=== PATIENT | female | born 2005 | race Hispanic/Latino ===

== ENCOUNTER 2025-02-04 16:47 | Emergency (ER) | payer OTHER ==
[~2025-02-04] VITALS: Ht 177.8 cm; Wt 84.4 kg
[~2025-02-04 16:47] MED LIST: ACET500P24 PO; AUGMENTIN
[2025-02-04 17:19] LABS: IMMATURE GRANULOCYTE ABSOLUTE 0.02 K/uL (0-1); NUCLEATED RED BLOOD CELLS 0.0 % (0.0-0.19); PLATELET COUNT (AUTO) 190 K/uL (130-400); RED BLOOD CELL COUNT(AUTO) 3.84 MIL/uL (4.00-5.50); RED CELL DISTRIBUTION WIDTH 11.9 % (11.0-15.5); WHITE BLOOD COUNT (AUTO) 7.1 K/uL (4.8-10.8)
[2025-02-04 17:29] LABS: CREATININE 0.8 mg/dL (0.5-1.0); GLOMERULAR FILTR. RATE CALC 108.0 mL/min (>90); GLUCOSE,RANDOM 110.0 mg/dL (70-105); SODIUM SERUM 137.0 mmol/L (136-145); UREA NITROGEN, BLOOD 8.0 mg/dL (7-18)
[2025-02-04 17:44] LABS: APPEARANCE,URINE CLOUDY (CLEAR); GLUCOSE, URINE (UA) NEGATIVE (NEGATIVE); HCG,QUALITATIVE URINE NEGATIVE (NEGATIVE); LEUKOCYTE ESTERASE ,URINE 25 Leu/uL (NEGATIVE); NITRATE,URINE NEGATIVE (NEGATIVE); OCCULT BLOOD,URINE NEGATIVE (NEGATIVE)
[2025-02-04 17:51] LABS: ADD UA MICROSCOPIC YES
[2025-02-04 17:56] LABS: SQUAMOUS EPITHELIAL CELL,UR MANY /HPF (0-2)
[2025-02-04] MEDS ORDERED: IOHEXOL-350 75 ML VIAL IV ONE (18:08)
[2025-02-04] MEDS: 0.9%NACL 1000ML 1,000 ML IV ONE (18:37)
--- NOTE | 2025-02-04 19:13 | HMCIMG ---
EXAM: CT Abdomen and Pelvis with IV Contrast. CLINICAL HISTORY: Abdominal pain, RLQ abdominal pain. TECHNIQUE: Axial computed tomography images of the abdomen and pelvis with intravenous contrast. CONTRAST: Intravenous contrast administered. COMPARISON: None provided. FINDINGS: LUNG BASES: The lung bases appear clear. No pleural effusions. LIVER: Unremarkable. GALLBLADDER AND BILE DUCTS: The gallbladder appears within normal limits. No radiopaque gallstones. No biliary ductal dilatation. PANCREAS: Unremarkable. SPLEEN: Unremarkable. ADRENAL GLANDS: Unremarkable. KIDNEYS, URETERS, AND BLADDER: The kidneys appear within normal limits. No hydronephrosis or hydroureter. No urinary calculi. STOMACH AND BOWEL: Unremarkable appearance of the stomach and bowel. No evidence of bowel obstruction, enteritis, or colitis. APPENDIX: No evidence of acute appendicitis. PERITONEUM: No free fluid. No free air. LYMPH NODES: No lymphadenopathy. REPRODUCTIVE: A hypodense cyst in the right adnexa measuring 3.5 x 3.5 cm, without calcification or septation. Mild adjacent fluid in the right adnexa. The right ovary is not separately visualized. VASCULATURE: No evidence of abdominal aortic aneurysm. BONES: No aggressive-appearing osseous lesion. No acute osseous pathology. IMPRESSION: 1. 3.5 cm right adnexal cyst with adjacent fluid. Right ovary not separately visualized. Recommend pelvic ultrasound with spectral Doppler of the right ovarian vessels for further characterization. 2. Remainder of the examination is within normal limits. Specifically, the appendix is normal. /[place]
--- NOTE | 2025-02-04 20:27 | HMCIMG ---
EXAM:US Pelvis, Complete Transabdominal. COMPARISON:CT Abdomen and Pelvis dated 02/04. CLINICAL HISTORY: Right lower quadrant pain. TECHNIQUE: Transabdominal pelvic ultrasound (complete) with image documentation. FINDINGS: ENDOMETRIUM: Normal thickness. UTERUS/CERVIX: The uterus appears within normal limits. No uterine fibroid or other mass evident. RIGHT OVARY: Normal Doppler flow. A well-defined heterogeneous echogenic mass is seen in the right ovary, measuring 3.2 x 3.1 x 3.4 cm. No internal flow is noted. LEFT OVARY: Normal Doppler flow. No abnormal mass. FREE FLUID: Mild fluid in the right adnexal region and cul-de-sac. IMPRESSION: Possible hemorrhagic cyst in the right ovary. Suggest follow up ultrasound to document resolution. /[place]ast[place]
[2025-02-04] MEDS ORDERED: KETO10 PO (21:06)
--- NOTE | 2025-02-04 21:08 | ERN ---
ED Note History of Present Illness Stated Complaint: ABDOMINAL PAIN Chief Complaint: Abdominal Pain Time Seen by MD: 17:10 Time Seen by Midlevel: 17:10 Dictation: The Patient is a 19-year-old female with a no significant past medical history who presents to the emergency department with complaints of right lower abdominal pain onset three days ago associated with nonbloody diarrhea. Patient denies any nausea or vomiting, denies any fevers. Allergies: Coded Allergies: No Known Allergies (Unverified Allergy, Unknown, 04/14/22) Home Meds Reported Medications [Augmentin] No Conflict Check, 850 MG Q12H, #20 04/16/22 Acetaminophen (Tylenol Extra Strength) 500 Mg Powd.pack, 500 MG PO Q6H, #30 04/16/22 Past Medical History Past Medical History: No Pertinent History Additional Past Medical Hx: denies pmhx Surgical History: Other Surgical History Other: left breast abscess RN Note Reviewed/Agreed w/PFSH: Yes Review of System Dictation Constitutional: Negative for fever,chills, and weight loss Eyes: Negative for injury, pain,redness, and discharge ENT: Negative for injury,pain or swelling Cardiovascular: Negative for chest pain, palpitations, and edema Respiratory: Negative for shortness of breath, cough, and wheezing, Abdomen/GI: Negative for , nausea, vomiting, and constipation right side abdominal pain, diarrhea Back: Negative for injury and pain : Negative for injury, bleeding and discharge MS/Extremity: Negative for injury and deformity Skin: Negative for rash, and discoloration Neuro: Negative for headache, weakness, numbness, tingling, and seizure Psych: Negative for suicide ideation, homicidal ideation, and hallucinations Initial Vital Sign VS Vital Signs Date Time Temp Pulse Resp B/P (MAP) Pulse Ox O2 Delivery O2 Flow Rate FiO2 02/04/25 16:49 98.8 72 16 137/80 100 Room Air 0 02/04/25 16:53 21 Physical Exam Dictation Vital Signs reviewed General Appearance: Alert, oriented x 3, no acute distress, well developed, nourished. Head and Face: non-traumatic. Eyes: PERRL, pink conjunctivas, eyelid no trauma, anterior chamber with arcus senilis. Ears: Pinnas intact and no signs of trauma or erythema ear canals clear and no discharge TM no erythema Nose: No discharge, no bleeding. Oropharynx: Mouth normal, tongue pink. pharynx clear,no erythema, tonsils no exudates, no abscesses noted, mucous membrane moist Neck: Supple, non-tender, no thyromegaly, no masses, no JVD, no bruits Breast:Deferred Chest:No tenderness, no crepitus, no paradoxical movement, no retractions Lungs:Clear, well-ventilated, symmetric, no rales, no wheezing, no rhonchi, no stridor, good breath sounds bilaterally Heart: Regular rate, regular rhythm, no murmur, no gallops Vascular: no peripheral edema, Abdomen: Soft, positive bowel sounds, nondistended, no guarding, right lower abd pain, no rebound, no masses no hepatomegaly, no splenomegaly, no Garcia's sign, no hernias. Rectal: Deferred Genital: Deferred Neurological: Normal speech, motor function intact, sensory function intact Musculoskeletal: Neck nontender, full range of motion, back nontender, full range of motion, Extremities: nontender, full range of motion Skin: Color pink, dry, no turgor, no rash, no lacerations, no abrasions, no contusions. Lymphatic: Deferred Results (Laboratory/Radiology) Laboratory/Radiology Laboratory Tests Test 02/04/25 16:55 02/04/25 17:06 Urine Color LIGHT-YELLOW (YELLOW) Urine Appearance CLOUDY (CLEAR) H Urine pH 5.5 (5.0-8.0) Urine Specific [place] 1.014 (1.001-1.031) Urine Protein NEGATIVE mg/dL (NEGATIVE) Urine Glucose (UA) NEGATIVE mg/dL (NEGATIVE) Urine Ketones 10 mg/dL (NEGATIVE) H Urine Occult Blood NEGATIVE (NEGATIVE) Urine Nitrate NEGATIVE (NEGATIVE) Urine Bilirubin NEGATIVE mg/dL (NEGATIVE) Urine Urobilinogen 0.2 mg/dL (0.2-1.0) Urine Leukocyte Esterase 25 Nguyen/uL (NEGATIVE) H Urine RBC 2-5 /HPF (0-1) H Urine WBC 2-5 /HPF (0-1) H Urine Squamous Epithelial Cells MANY /HPF (0-2) Urine Bacteria RARE /HPF (None Seen) Urine HCG, Qualitative NEGATIVE (NEGATIVE) White Blood Count 7.1 K/uL (4.8-10.8) Red Blood Count 3.84 MIL/uL (4.00-5.50) L Hemoglobin 11.9 g/dL (12.0-16.0) L Hematocrit 35.4 % (36-48) L Mean Corpuscular Volume 92.2 fL (80-100) Mean Corpuscular Hemoglobin 31.0 pg (27.0-33.0) Mean Corpuscular Hemoglobin Concent 33.6 g/dL (32.0-36.0) Red Cell Distribution Width 11.9 % (11.0-15.5) Platelet Count 190 K/uL (130-400) Mean Platelet Volume 11.2 fL (7.5-10.5) H Immature Granulocyte % (Auto) 0.3 % (0-1) Neutrophils (%) (Auto) 67.2 % (40.0-77.0) Lymphocytes (%) (Auto) 26.2 % (21.0-51.0) Monocytes (%) (Auto) 5.0 % (3.0-13.0) Eosinophils (%) (Auto) 0.7 % (0.0-8.0) Basophils (%) (Auto) 0.6 % (0.0-5.0) Neutrophils # (Auto) 4.8 K/uL (1.8-7.7) Lymphocytes # (Auto) 1.9 K/uL (1.0-4.8) Monocytes # (Auto) 0.4 K/uL (0.1-1.0) Eosinophils # (Auto) 0.05 K/uL (0.00-0.70) Basophils # (Auto) 0.04 K/uL (0.00-0.20) Absolute Immature Granulocyte (auto 0.02 K/uL (0-1) Nucleated Red Blood Cells 0.0 % (0.0-0.19) Sodium Level 137 mmol/L (136-145) Potassium Level 3.6 mmol/L (3.5-5.1) Chloride Level 101 mmol/L (101-111) Carbon Dioxide Level 24 mmol/L (21-32) Blood Urea Nitrogen 8 mg/dL (7-18) Creatinine 0.8 mg/dL (0.5-1.0) Glomerular Filtration Rate Calc 108 mL/min (>90) Random Glucose 110 mg/dL (70-105) H Total Calcium 9.6 mg/dL (8.5-10.1) SERVICE 1759 REASON: right lower pain ORDERING PHYSICIAN: FRANCIS RUBIO [facility] PROCEDURE: PELVCOMP - US PELVIC NON-OB COMP EXAM:US Pelvis, Complete Transabdominal. COMPARISON:CT Abdomen and Pelvis dated 02/04. CLINICAL HISTORY: Right lower quadrant pain. TECHNIQUE: Transabdominal pelvic ultrasound (complete) with image documentation. FINDINGS: ENDOMETRIUM: Normal thickness. UTERUS/CERVIX: The uterus appears within normal limits. No uterine fibroid or other mass evident. RIGHT OVARY: Normal Doppler flow. A well-defined heterogeneous echogenic mass is seen in the right ovary, measuring 3.2 x 3.1 x 3.4 cm. No internal flow is noted. LEFT OVARY: Normal Doppler flow. No abnormal mass. FREE FLUID: Mild fluid in the right adnexal region and cul-de-sac. IMPRESSION: Possible hemorrhagic cyst in the right ovary. Suggest follow up ultrasound to document resolution. /[place] REASON: Abdominal Pain, rlq abd pain ORDERING PHYSICIAN: FRANCIS RUBIO [facility] PROCEDURE: ABD PEL W - CT ABDOMEN/PELVIS W/CONTRAST EXAM: CT Abdomen and Pelvis with IV Contrast. CLINICAL HISTORY: Abdominal pain, RLQ abdominal pain. TECHNIQUE: Axial computed tomography images of the abdomen and pelvis with intravenous contrast. CONTRAST: Intravenous contrast administered. COMPARISON: None provided. FINDINGS: LUNG BASES: The lung bases appear clear. No pleural effusions. LIVER: Unremarkable. GALLBLADDER AND BILE DUCTS: The gallbladder appears within normal limits. No radiopaque gallstones. No biliary ductal dilatation. PANCREAS: Unremarkable. SPLEEN: Unremarkable. ADRENAL GLANDS: Unremarkable. KIDNEYS, URETERS, AND BLADDER: The kidneys appear within normal limits. No hydronephrosis or hydroureter. No urinary calculi. STOMACH AND BOWEL: Unremarkable appearance of the stomach and bowel. No evidence of bowel obstruction, enteritis, or colitis. APPENDIX: No evidence of acute appendicitis. PERITONEUM: No free fluid. No free air. LYMPH NODES: No lymphadenopathy. REPRODUCTIVE: A hypodense cyst in the right adnexa measuring 3.5 x 3.5 cm, without calcification or septation. Mild adjacent fluid in the right adnexa. The right ovary is not separately visualized. VASCULATURE: No evidence of abdominal aortic aneurysm. BONES: No aggressive-appearing osseous lesion. No acute osseous pathology. IMPRESSION: 1. 3.5 cm right adnexal cyst with adjacent fluid. Right ovary not separately visualized. Recommend pelvic ultrasound with spectral Doppler of the right ovarian vessels for further characterization. 2. Remainder of the examination is within normal limits. Specifically, the appendix is normal. /[place] Labs Reviewed?: Yes ED Course ED Course Orders Procedure Category Date Status Time Cbc With Differential LAB 02/04/25 Complete 16:50 Basic Metabolic Panel LAB 02/04/25 Complete 16:50 Urinalysis Profile LAB 02/04/25 Complete 16:50 ,Urine Test LAB 02/04/25 Complete 16:50 Ct Abdomen/Pelvis CT 02/04/25 Resulted W/Contrast 17:59 0.9%Nacl 1000ml (Ns PHA 02/04/25 Complete 1000ml) 18:00 Morphine 4mg Syg PHA 02/04/25 Complete (Morphine 4mg Syg) 18:00 Ondansetron 4mg Inj PHA 02/04/25 Complete (Zofran 4mg Inj) 18:00 Us Pelvic Non-Ob Comp US 02/04/25 Resulted 17:59 Iohexol (Omnipaque) PHA 02/04/25 Complete 18:08 Current Medications Medications (Trade) Dose Ordered Sig/Anny Route PRN Reason Start Time Stop Time Status Last Admin Dose Admin Iohexol (Omnipaque) 75 ml STK-MED ONCE IV 02/04/25 18:08 02/04/25 18:09 DC Morphine Sulfate (morPHINE 4MG SYG) 4 mg ONCE ONCE IVP 02/04/25 18:00 02/04/25 18:01 DC 02/04/25 18:37 Ondansetron HCl (zoFRAN 4MG INJ) 4 mg ONCE ONCE IVP 02/04/25 18:00 02/04/25 18:01 DC 02/04/25 18:37 Sodium Chloride 1,000 ml @ 0 mls/hr ONCE ONCE IV 02/04/25 18:00 02/04/25 18:01 DC 02/04/25 18:37 Vital Signs Date Time Temp Pulse Resp B/P (MAP) Pulse Ox O2 Delivery O2 Flow Rate FiO2 02/04/25 16:53 98.8 72 16 137/80 100 Room Air* 0 21 02/04/25 16:49 98.8 72 16 137/80 100 Room Air 0 Medical Decision Making MDM The Patient is a 19-year-old female with a no significant past medical history who presents to the emergency department with complaints of right lower abdominal pain onset three days ago associated with nonbloody diarrhea. Patient denies any nausea or vomiting, denies any fevers. CBC showed no leukocytosis, mild normocytic anemia, chemistry showed no electrolyte imbalance, normal renal function, urinalysis with scant leukocyte esterase. Negative hCG. CT abdomen showed no signs of appendicitis. U ltrasound showed right hemorrhagic cyst. Patient reports pain is improved. On physical exam patient is in no acute distress, stable vital signs. Patient instructed to follow up with the OBGYN. Differential diagnosis: Appendicitis, UTI, ovarian cyst Need for hospitalization: Patient does not meet criteria for hospitalization. There are no social concerns with this patient. DX & DISP Disposition: Discharge Departure Impression: Primary Impression: Hemorrhagic cyst of right ovary Condition: Stable Scripts Ketorolac Tromethamine (Toradol) 10 Mg Tab 1 TAB PO TID for pain for 5 Days, #15 TAB 0 Refills Prov: FRANCIS RUBIO 02/04/25 Additional Instructions: Please follow up with your OBGYN as possible. You will need a follow up ultrasound to continue monitoring cyst. If you develop severe abdominal pain, dizziness please return to ER. FOLLOW-UP WITH PRIMARY CARE PROVIDER IN 1 TO 2 DAYS. TAKE MEDICATIONS DIRECTED HERE IN THE EMERGENCY ROOM. OKAY TO CONTINUE HOME MEDICATIONS UNLESS OTHERWISE DISCUSSED DURING YOUR VISIT IN THE EMERGENCY ROOM TODAY. RETURN TO YOUR NEAREST EMERGENCY ROOM IF SYMPTOMS WORSEN OR IF THERE IS NO IMPROVEMENT. CALL 911 IF YOU NEED IMMEDIATE ASSISTANCE. TAKE TYLENOL [id number] NEEDED AND IF NO CONTRAINDICATIONS ARE PRESENT. INCREASE ORAL HYDRATION. A WOUND CULTURE OR URINE CULTURE WAS ORDERED HERE IN THE EMERGENCY ROOM DEPARTMENT PLEASE FOLLOW-UP WITH PRIMARY CARE PROVIDER AND ADVISE THEM TO GET REPEAT PORTS FROM OUR FACILITY. IF YOU HAD ANY GANESH WRAP/SPLINTS THAT WERE APPLIED HERE, PLEASE DO NOT REMOVE THEM UNTIL YOU SEE YOUR PRIMARY CARE OR SPECIALTY. Referrals: GALO ARCE (PCP) Time of Disposition: 21:04 I have reviewed the case, and I agree with, Diagnosis and Plan FRANCIS RUBIO Feb 04, 2025 21:08
[2025-02-04 21:17] VITALS: BP 135/72; PULSE 70; RESP 16; TEMP 98.7; O2SAT 100
== END 2025-02-04 21:22 | disposition home or self-care (01) ==
LOC: EDH 16:47
DX: N83.201 Unspecified ovarian cyst, right side (principal)
CPT/HCPCS: 99285; 74177; 96374; 76856; 96361; 96375; 80048; 85025; 81001; 81025; 36415; J7030; J2405; J2270; Q9967